=== PATIENT | male | born 1955 | race Caucasian/White ===

== ENCOUNTER 2017-02-28 11:33 | Outpatient (CLI) | payer BC | END 2017-02-28 11:34 | disposition home or self-care (01) | LOC: BICRAD 11:33 | PROVIDERS: ATTEND Internal Medicine | DX: I10 Essential (primary) hypertension (principal); J98.4 Other disorders of lung | CPT/HCPCS: 36415; 71046; 80053; 80061; 81001; 82306; 84439; 84443; 85025; 86803; G0103 ==

== ENCOUNTER 2018-01-03 14:08 | Outpatient (CLI) | payer BC ==
--- NOTE | 2018-01-03 16:17 | RAD ---
RADIOGRAPH CHEST 2 VIEWS: Date: 01-03-18 Time: 2:26 p.m. HISTORY: 62-year-old male with hypoxia. COMPARISON: 02-28-17 FINDINGS: Again noted are the streaky densities at the base of the left lower lobe, apparently chronic. No card iomegaly. No new consolidation or pleural effusion. No pulmonary edema or pneumothorax. No interval c hange overall. IMPRESSION: 1. Chronic pulmonary densities at the base of the left lower lobe. 2. No acute findings. BASSEM POS: PER
== END 2018-01-03 14:09 | disposition home or self-care (01) ==
LOC: BICRAD 14:08
PROVIDERS: ATTEND Internal Medicine
DX: R09.02 Hypoxemia (principal); J98.4 Other disorders of lung
CPT/HCPCS: 71046

== ENCOUNTER → 2018-07-21 | Outpatient (CLI) | payer BC | LOC: SLEEPLAB 20:30 | PROVIDERS: ATTEND Internal Medicine | DX: G47.33 Obstructive sleep apnea (adult) (pediatric) (principal); R06.83 Snoring; R35.1 Nocturia; I10 Essential (primary) hypertension | CPT/HCPCS: 95811 ==

== ENCOUNTER → 2018-08-21 | Day surgery (SDC) | payer BC ==
[2018-08-18 10:38] VITALS: BMI 30.7
[~2018-08-21] MED LIST: PROPOFOL 20 ML ONE; PROPOFOL 200 MG/20 ML VIAL ONE; Propofol 1,000 MG/100 ML VIAL IV ONE
--- NOTE | 2018-09-07 08:04 | OP ---
DATE OF PROCEDURE: 08/21/2018 PREPROCEDURE DIAGNOSIS: Cardiac mass. POSTPROCEDURE DIAGNOSIS: Prominent ridge between the left atrial appendage and left upper pulmonary vein felt to be a normal variant. COMPLICATIONS: None. The patient was consented for the procedure. I discussed the full details with Mr. Gregory. Conscious sedation performed with propofol. Anesthesia was present. FINDINGS: Overall LVEF does appear normal. The mitral valve is well visualized. There is normal excursion. The left atrium is well visualized. The left upper pulmonary vein is also well visualized. There is a prominent ridge. It is hyperechoic and is felt to be a normal variant between the left atrial appendage and left upper pulmonary vein. IMPRESSION: Normal variant of a ridge between the left atrial appendage and the left upper pulmonary vein. Job ID: [id number]
== END ==
LOC: EEVIPCON → CCL 07:59
PROVIDERS: ATTEND Internal Medicine Cardiovascular Disease
PROC: B245ZZ4 Ultrasonography of Left Heart, Transesophageal (ICD-10-PCS; principal; 2018-08-21)
DX: I42.9 Cardiomyopathy, unspecified (principal)
CPT/HCPCS: 93312; J2704

== ENCOUNTER 2019-04-20 08:30 | Outpatient (CLI) | payer BC ==
--- NOTE | 2019-04-20 10:56 | ULT ---
BILATERAL RENAL ULTRASOUND WITH BILLY SCALE AND COLOR FLOW AND SPECTRAL DOPPLER IMAGING: Date; 04/20/2019 HISTORY: Hypertension. FINDINGS: The right kidney measures 10.6 cm in length and the left kidney measures 11.5 cm in length. No focal mass or hydronephrosis is seen on either side. Cortical echogenicity and thickness is normal. The urinary bladder has a volume of 19 mL and is grossly unremarkable. The peak systolic velocity in the right renal artery measures 141 cm/second and the left renal artery measures 90 cm/second, with renal artery to aortic ratios of 1.38 on the right and 0.88 on the left, and resistive indices of 0.61 on the right and 0.55 on the left. IMPRESSION: No significant abnormalities are seen. POS: [facility]
== END 2019-04-20 08:31 | disposition home or self-care (01) ==
LOC: BICULT 08:30
PROVIDERS: ATTEND Internal Medicine
DX: I10 Essential (primary) hypertension (principal)
CPT/HCPCS: 36415; 76770; 80048; 93975

== ENCOUNTER 2019-09-12 11:37 | Outpatient (CLI) | payer BC ==
--- NOTE | 2019-09-12 12:13 | RAD ---
2 VIEW CHEST: Date: 09/12/2019 INDICATION: Dyspnea. COMPARISON: 01/03/2018. FINDINGS: Heart size upper normal and stable. Vascular and interstitial markings mildly prominent, but stable. No focal infiltrate. No interval change noted. IMPRESSION: No acute process. POS: [facility]
== END 2019-09-12 11:38 | disposition home or self-care (01) ==
LOC: BICRAD 11:37
PROVIDERS: ATTEND Internal Medicine Critical Care Medicine
DX: R06.00 Dyspnea, unspecified (principal)
CPT/HCPCS: 71046

== ENCOUNTER 2022-12-08 08:15 | Outpatient (CLI) | payer OTHER | END 2022-12-08 08:16 | disposition home or self-care (01) | LOC: RAD 08:15 | PROVIDERS: ATTEND Internal Medicine Critical Care Medicine | DX: R06.00 Dyspnea, unspecified (principal); J98.4 Other disorders of lung; I51.7 Cardiomegaly | CPT/HCPCS: 71046 ==

== ENCOUNTER 2024-12-18 08:18 | Outpatient (CLI) | payer MEDICARE | END 2024-12-18 08:19 | disposition home or self-care (01) | LOC: RAD 08:18 | PROVIDERS: ATTEND Internal Medicine Critical Care Medicine | DX: R06.00 Dyspnea, unspecified (principal) | CPT/HCPCS: 71046 ==